=== PATIENT | female | born 1950 | race Caucasian/White ===

== ENCOUNTER 2019-01-14 11:39 | Day surgery (SDC) | payer MEDICARE, OTHER ==
[~2019-01-14] VITALS: Ht 160 cm; Wt 79.9 kg
[~2019-01-14 11:39] MED LIST: ATENOLOL; INSULIN
[2019-01-14 12:38] VITALS: Ht 160 cm; Wt 79.9 kg
[2019-01-14 12:44] VITALS: BP 125/62; PULSE 73; RESP 20
[2019-01-14] MEDS ORDERED: PROPOFOL 40 ML ONE (12:54)
[2019-01-14] MEDS ORDERED: MIDAZOLAM 1 MG/ML 2 ML INJ ONE (12:54)
[2019-01-14] MEDS ORDERED: PROPOFOL 200 MG INJ ONE (13:34)
== END 2019-01-14 14:32 | disposition home or self-care (01) ==
LOC: GIL 11:39
PROVIDERS: ATTEND Internal Medicine Gastroenterology
DX: R19.4 Change in bowel habit (principal); K64.8 Other hemorrhoids; K44.9 Diaphragmatic hernia without obstruction or gangrene; K21.9 Gastro-esophageal reflux disease without esophagitis; I10 Essential (primary) hypertension; J45.909 Unspecified asthma, uncomplicated; E11.9 Type 2 diabetes mellitus without complications
CPT/HCPCS: 82962; 88305; 88312; J2250